=== PATIENT | female | born 1995 | race Caucasian/White ===

== ENCOUNTER 2018-04-23 14:06 | Emergency (ER) | payer MEDICAID, OTHER ==
[2018-04-23 14:19] VITALS: TEMP 98.7
[2018-04-23] MEDS: TETANUS,DIPHTHERIA,PERTUSSIS 1 EA SYG IM ONE (14:54)
--- NOTE | 2018-04-23 15:23 | ED.PDOC ---
History of Present Illness - General Chief Complaint: Body Fluid Exposure Stated Complaint: needle stick/[facility] employee Time Seen by Provider: 04/23/18 14:43 Source: patient Exam Limitations: no limitations - History of Present Illness Initial Comments: PT WAS STUCK WITH NEEDLE WHILE DRAWING BLOOD ON A PT IN ER, MR. NATY JOHNSON ([place]). Severity: moderate Improving Factors: nothing Worsening Factors: nothing Associated Symptoms: denies symptoms Allergies/Adverse Reactions: Allergies NO KNOWN ALLERGY Allergy (Verified 04/23/18 14:15) Home Medications: Ambulatory Orders NK 04/23/18 Review of Systems - Review of Systems Constitutional: States: no symptoms reported EENTM: States: no symptoms reported Respiratory: States: no symptoms reported Cardiology: States: no symptoms reported Gastrointestinal/Abdominal: States: no symptoms reported Genitourinary: States: no symptoms reported Musculoskeletal: States: no symptoms reported Skin: States: no symptoms reported Neurological: States: no symptoms reported Endocrine: States: no symptoms reported Hematologic/Lymphatic: States: no symptoms reported All other Systems: Reviewed and Negative Past Medical History (General) - Patient Medical History Hx Asthma: No Hx Diabetes: No Hx Cancer: No Hx Hepatitis C: No Surgical History: no surgical history - Vaccination History Hx Tetanus, Diphtheria Vaccination: No Hx Influenza Vaccination: Yes Hx Pneumococcal Vaccination: No Immunizations Up to Date: No - Social History Hx Tobacco Use: No Hx Alcohol Use: Yes - OCCD Hx Substance Use: No Hx Substance Use Treatment: No Hx Depression: No - Female History Patient is a Female of Child Bearing Age (10 -59 yrs old): Yes Family Medical History - Family History Mother Family History: No Known Living Status: Still Living Physical Exam - Physical Exam General Appearance: Alert, No apparent distress Ears, Nose, Throat: hearing grossly normal, normal ENT inspection Neck: full range of motion, normal inspection Respiratory: lungs clear, no respiratory distress Cardiovascular/Chest: normal peripheral pulses, regular rate, rhythm, no edema, no gallop, no JVD, no murmur Peripheral Pulses: radial,right: 2+, radial,left: 2+ Gastrointestinal/Abdominal: normal bowel sounds Rectal Exam: deferred Back Exam: normal inspection Extremity: normal range of motion, non-tender, no pedal edema, no calf tenderness Neurologic: no motor/sensory deficits, alert, normal mood/affect Skin Exam: normal color, warm/dry, other - NEEDLE STICK RISA PRESENT ON R VOLAR WRIST. NO SURROUNDING ERYTHEMA. Lymphatic: no adenopathy Progress - Progress Progress: 04/23/18 15:23 RECENT TDAP 2009, THUS GAVE UPDATED TODAY. 04/23/18 15:27 ACCIDENTAL NEEDLE STICK - LABS DRAWN OF ER PT AND EMPLOYEE, PER HOSPITAL PROTOCOL. Departure - Departure Clinical Impression: Accidental needlestick injury with exposure to body fluid Disposition: Discharge to Home or Self Care Condition: Good Departure Forms: ED Discharge - Pt. Copy, Patient Portal Self Enrollment Diet: resume usual diet Activity: increase activity as tolerated Home Medications: Ambulatory Orders NK 04/23/18 Additional Instructions: Please follow-up with the hospital regarding your labs from today.
[2018-04-23 15:27] VITALS: BP 124/74; O2SAT 98
== END 2018-04-23 15:27 | disposition home or self-care (01) ==
LOC: ER 14:06
DX: Z57.8 Occupational exposure to other risk factors (principal); Z23 Encounter for immunization; W46.0XXA Contact with hypodermic needle, initial encounter; Y99.0 Civilian activity done for income or pay; Y92.69 Other specified industrial and construction area as the place of occurrence of the external cause